=== PATIENT | female | born 1995 | race Caucasian/White ===

== ENCOUNTER 2021-02-11 15:35 | Outpatient (CLI) | payer OTHER ==
[2021-02-11] MEDS ORDERED: FOLIC ACID20 MG PO (16:52)
[2021-02-11] MEDS ORDERED: PRENATAL TABLE1 EAC1 PO (16:52)
[2021-02-11] MEDS ORDERED: IRON325 MG PO (16:52)
== END 2021-02-12 18:23 | disposition home or self-care (01) ==
LOC: OBS/DEL 15:35
PROVIDERS: ATTEND Obstetrics & Gynecology
DX: O36.8330 Maternal care for abnormalities of the fetal heart rate or rhythm, third trimester, not applicable or unspecified (principal); O26.893 Other specified pregnancy related conditions, third trimester; M79.18 Myalgia, other site; R50.83 Postvaccination fever; T50.B95A Adverse effect of other viral vaccines, initial encounter; Z3A.39 39 weeks gestation of pregnancy; Y92.89 Other specified places as the place of occurrence of the external cause